=== PATIENT | male | born 1950 | race Caucasian/White ===

== ENCOUNTER → 2021-10-28 16:23 | Outpatient (CLI) | payer MEDICARE, OTHER, SELFPAY ==
[2021-10-28 17:53] LABS: INR 2.9 (0.9-1.3); Prothrombin Time 33.1 SECONDS (10.1-12.7)
== END ==
PROVIDERS: Internal Medicine
DX: Z79.01 Long term (current) use of anticoagulants (principal); Z95.2 Presence of prosthetic heart valve
CPT/HCPCS: 36415; 85610